=== PATIENT | female | born 2005 | race Caucasian/White ===

== ENCOUNTER 2024-01-17 02:28 | Emergency (ER) | payer OTHER, SELFPAY ==
[2024-01-17 03:37] LABS: BHCG - Serum Negative (NEGATIVE); Pregs Control Background? CLEAR/WHITE (CLR/WHITE); Pregs Control Bar Appear? YES (CONTROL BAR)
[2024-01-17 03:42] LABS: ALT (SGPT) 27 U/L (8-55); AST (SGOT) 32 U/L (5-34); Acetaminophen Less than 10 mcg/mL (Less than 10); Albumin 3.9 g/dL (3.5-5.0); Alcohol 292.6 mg/dL (Less than 10); Alkaline Phosphatase 84 U/L (40-100); Anion Gap 14 mmol/L (10-20); BUN (Urea Nitrogen) 8 mg/dL (7.0-18.7); Bilirubin, Total 0.4 mg/dL (0.2-1.2); Calc. Creatinine Clearance 0 mL/min (70-130); Carbon Dioxide 22 mmol/L (22-29); Chloride 108 mmol/L (98-107); Estimated GFR 117; Globulin 2.6 g/dL (2.4-3.5); Glucose 75 mg/dL (70-105); Potassium 3.5 mmol/L (3.5-5.1); Protein, Total 6.5 g/dL (6.0-8.3); Salicylate Less than 8.0 mg/dL (Less than 8.0); Sodium 140 mmol/L (136-145)
[2024-01-17 04:01] LABS: Hematocrit 37.7 % (36.0-47.0); Hemoglobin 12.8 g/dL (12.0-16.0); Mean Corpuscular Hemoglobin 30.3 pg (25.0-35.0); Mean Corpuscular Volume 89.1 fL (78.0-98.0); Mean Platelet Volume 9.9 fL (7.4-10.4); Platelet Count 296 10x3/uL (130-400); RBC Distribution Width 11.5 % (11.5-14.5); Red Blood Cell (RBC) Count 4.23 mill/uL (4.00-5.20)
[2024-01-17 04:23] LABS: Lymphocytes 39 % (28-48); Microcytosis SLIGHT = 6-15 cells HPF (0-5); Monocytes 12 % (0-4); Neutrophil 43 % (31-61); Platelet Adequacy Comment Platelets Normal; Polychromasia SLIGHT = 2-3 cells HPF (0-2); Reactive Lymphocytes 3 % (0-10); Rouleaux Formation SLIGHT = 1-5 cells HPF (None Seen)
[2024-01-17] MEDS ORDERED: fentaNYL 50 mcg/mL 1 mL Vial ONE (05:48)
[2024-01-17] MEDS ORDERED: Magnesium 2 GM/50 ML BAG (IN WATER) ONE (05:50)
[2024-01-17] MEDS ORDERED: Lidocaine 1% w/Epinephrine 1:100K 20 ML VIAL ONE (06:51)
[2024-01-17] MEDS ORDERED: Triple Antibiotic Oint 1 GM Packet ONE (07:10)
== END 2024-01-17 08:10 | disposition home or self-care (01) ==
LOC: ERS 02:28 → EDBD 02:28 → ERS 08:10
DX: S52.121A Displaced fracture of head of right radius, initial encounter for closed fracture (principal); S81.012A Laceration without foreign body, left knee, initial encounter; S05.12XA Contusion of eyeball and orbital tissues, left eye, initial encounter; F10.129 Alcohol abuse with intoxication, unspecified; W10.8XXA Fall (on) (from) other stairs and steps, initial encounter
CPT/HCPCS: 12002; 24650; 70450; 70486; 71045; 72125; 72170; 80053; 80307; 84703; 85025; J3010; J3475